=== PATIENT | female | born 1980 | race African-American/Black ===

== ENCOUNTER 2022-07-10 14:39 | Outpatient (CLI) | payer MEDICAID, SELFPAY ==
[2022-07-10 19:39] LABS: Chloride* 106 mmol/L (96-114)
[2022-07-10 19:40] LABS: Potassium* 3.9 mmol/L (3.6-5.1); Sodium* 137 mmol/L (135-149)
[2022-07-10 19:42] LABS: Cholesterol* 141 mg/dL (90-199)
[2022-07-10 19:43] LABS: Blood Urea Nitrogen* 9 mg/dL (5-24); Carbon Dioxide* 22 mmol/L (20-32); Creatinine* 0.6 mg/dL (0.5-1.5); Estimated Glomerular Filt Rate 116 ml/min; Glucose* 86 mg/dL (60-115); Triglycerides* 87 mg/dL (40-149)
[2022-07-10 19:44] LABS: Calcium* 9.1 mg/dL (8.4-10.6); HDL Cholesterol* 48 mg/dL (>=50); LDL Cholesterol Calculated 76 mg/dL (<100)
[2022-07-10 20:19] LABS: Ferritin* 4.3 ng/mL (6.24-137.0)
== END 2022-07-10 14:40 | disposition home or self-care (01) ==
PROVIDERS: PCP Emergency Medicine; Visit Provider Emergency Medicine
DX: Z01.419 Encounter for gynecological examination (general) (routine) without abnormal findings (principal); E03.8 Other specified hypothyroidism; D50.9 Iron deficiency anemia, unspecified; F32.A Depression, unspecified; Z13.6 Encounter for screening for cardiovascular disorders
CPT/HCPCS: 80048; 80061; 82728; 84443

== ENCOUNTER 2022-08-21 18:02 | Outpatient (CLI) | payer MEDICAID, SELFPAY | END 2022-08-21 18:03 | disposition home or self-care (01) | LOC: LKVREF 18:03 | PROVIDERS: PCP Emergency Medicine; Visit Provider Emergency Medicine | DX: D50.9 Iron deficiency anemia, unspecified (principal) | CPT/HCPCS: 82728 ==

== ENCOUNTER 2022-12-12 14:51 | Outpatient (CLI) | payer MEDICAID, SELFPAY | END 2022-12-12 14:52 | disposition home or self-care (01) | LOC: LKVREF 14:52 | PROVIDERS: PCP Emergency Medicine; Visit Provider Emergency Medicine | DX: N92.0 Excessive and frequent menstruation with regular cycle (principal); D50.9 Iron deficiency anemia, unspecified; R42 Dizziness and giddiness; F32.A Depression, unspecified | CPT/HCPCS: 82728; 85730 ==

== ENCOUNTER 2023-07-09 09:33 | Outpatient (CLI) | payer MEDICAID, SELFPAY | END 2023-07-09 09:34 | disposition home or self-care (01) | LOC: NFLDREF 07-10 06:40 | PROVIDERS: PCP Emergency Medicine; Referring Provider Emergency Medicine; Visit Provider Emergency Medicine | DX: D64.9 Anemia, unspecified (principal); E03.8 Other specified hypothyroidism; R79.0 Abnormal level of blood mineral; Z13.6 Encounter for screening for cardiovascular disorders | CPT/HCPCS: 80048; 80061; 82728; 84443 ==

== ENCOUNTER 2023-07-29 20:22 | Outpatient (CLI) | payer MEDICAID, SELFPAY ==
--- NOTE | 2023-08-06 08:50 | W.PM.SLEEP ---
Sleep Study Details Details Interpreting Provider: Walt Date of Sleep Study: 07/29/23 Sleep Study Details: STUDY TYPE:? Hospital polysomnogram ? BMI:? 28.3 ORDERING PROVIDER:? Walt INDICATION:? Concerns about sleep apnea ? SLEEP SUMMARY:? 375 minutes of sleep time RESPIRATORY SUMMARY:? Mean oxygen awake 98 asleep 98 minimum 91 AHI 3.8, RDI 6.4 Supine AHI 8.1, supine REM AHI 53.8 nonsupine RDI 0.9 PERIODIC LIMB MOVEMENTS OF SLEEP:? Index 3.4, index with arousal 0.3 CARDIAC:? Awake 84 sleep 78 no arrhythmias IMPRESSION:? The overall AHI is within normal limits however the RDI is elevated at 6.4. The supine REM AHI is dramatically elevated at 53.8 RECOMMENDATION: If the patient is symptomatic treatment could consist of positional therapy, CPAP AutoSet 4-17 or a dental appliance.
== END 2023-07-29 20:23 | disposition home or self-care (01) ==
LOC: SLEEP 20:23
PROVIDERS: PCP Emergency Medicine; Visit Provider Otolaryngology
DX: G47.19 Other hypersomnia (principal)
CPT/HCPCS: 95810

== ENCOUNTER 2023-08-15 15:35 | Outpatient (CLI) | payer OTHER, MEDICAID, SELFPAY | END 2023-08-15 15:36 | disposition home or self-care (01) | PROVIDERS: PCP Emergency Medicine; Visit Provider Emergency Medicine | DX: Z00.00 Encounter for general adult medical examination without abnormal findings (principal); E04.1 Nontoxic single thyroid nodule; E03.8 Other specified hypothyroidism; R63.5 Abnormal weight gain; D50.9 Iron deficiency anemia, unspecified; E55.9 Vitamin D deficiency, unspecified; R79.0 Abnormal level of blood mineral; Z13.6 Encounter for screening for cardiovascular disorders | CPT/HCPCS: 84439; 84443; 84480 ==

== ENCOUNTER 2023-08-21 15:30 | Outpatient (CLI) | payer OTHER, MEDICAID, SELFPAY ==
--- NOTE | 2023-08-21 16:00 | CRLHL7_ITS ---
For Patients: As a result of the Cures Act, medical imaging exams and procedure reports are released immediately into your electronic medical record. You may view this report before your referring provider. If you have questions, please contact your health care provider. INDICATION: Thyroid nodules. Benign thyroid biopsy about 20 years ago per patient. TECHNIQUE: Conventional two-dimensional leon-scale ultrasound of the thyroid gland. COMPARISON: None. FINDINGS: In the medial aspect of the mid right thyroid lobe is a 1.5 x 1.3 x 1.0 cm TR4 nodule. In the medial aspect of the inferior right lobe is a 1.6 x 1.0 x 0.8 cm TR3 nodule. In the superior right lobe is an 8 mm TR4 nodule and in the inferior right lobe is a 5 mm TR2 nodule. No left lobe nodule is evident otherwise. The thyroid parenchyma is otherwise unremarkable. The right lobe measures 4.5 x 1.9 x 2.0 cm and the left lobe 4.4 x 1.4 x 1.4 cm. The isthmus measures 4 mm in thickness. IMPRESSION: 1.6 cm TR4 medial mid right thyroid lobe nodule. Other nodules insignificant. ACR TI-RADS: TR1: Benign No FNA TR2: Not Suspicious No FNA TR3: Mildly Suspicious FNA if greater than or equal to 2.5 cm Follow if greater than or equal to 1.5 cm and less than 2.5 cm TR4: Moderately Suspicious FNA if greater than or equal to 1.5 cm Follow if greater than or equal to 1 cm and less than 1.5 cm TR5: Highly Suspicious FNA if greater than or equal to 1 cm Follow if greater than or equal to 0.5 cm and less than 1.0 cm Dictated by Marcellus Ortega MD @ 08/23/2023 7:17:37 AM (Electronically Signed)
== END 2023-08-21 15:31 | disposition home or self-care (01) ==
LOC: US 15:31
PROVIDERS: PCP Emergency Medicine; Visit Provider Emergency Medicine
DX: E04.1 Nontoxic single thyroid nodule (principal)
CPT/HCPCS: 76536

== ENCOUNTER 2023-09-20 10:09 | Outpatient (CLI) | payer OTHER, MEDICAID, SELFPAY ==
--- NOTE | 2023-09-20 10:15 | CRLHL7_ITS ---
For Patients: As a result of the Century Cures Act, medical imaging exams and procedure reports are released immediately into your electronic medical record. You may view this report before your referring provider. If you have questions, please contact your health care provider. INDICATION : Right thyroid nodule. TECHNIQUE : Ultrasound-guided fine needle aspiration of thyroid nodule. Comparison : 08/21/2023 FINDINGS : PROCEDURE: After the informed consent and time-out, multiple fine needle aspirations were obtained from the thyroid nodule. Fine needle performed. 25 gauge needles were used. Lidocaine was used for local anesthesia. The preliminary cytology was adequate for interpretation. Real-time imaging was used for guidance and needle placement. Post imaging ultrasound demonstrates no immediate complication. IMPRESSION : Successful fine needle aspiration of right thyroid nodule. Dictated by Miguel Medeiros MD @ 09/20/2023 12:11:25 PM (Electronically Signed)
== END 2023-09-20 10:10 | disposition home or self-care (01) ==
LOC: US 10:11
PROVIDERS: PCP Emergency Medicine; Visit Provider Emergency Medicine
DX: E04.1 Nontoxic single thyroid nodule (principal)
CPT/HCPCS: 10005; 88173

== ENCOUNTER 2023-11-05 09:45 | Outpatient (RCR) | payer OTHER, MEDICAID, SELFPAY ==
--- NOTE | 2023-10-01 09:37 | PT.OPE ---
[facility] PT [facility] Out[facility] Eval Start: 09/20/23 15:38 Freq: Status: Active Protocol: Document 09/20/23 15:38 EMEKA (Rec: 09/20/23 15:40 EMEKA [id number]) E-signed By Joel Patel DPT, MS Physical Therapy Outpatient Evaluation Insurance Information Recert Due Date 11/19/23 Insurance Name [employer],Medicaid Medical Diagnosis Chondromalacia patellae, unspecified knee Treating Diagnosis Decreased R knee ROM and R LE flexibility, R LE weakness, imbalance, gait dysfunction. Subjective Subjective Patient presents to PT with c/ o chronic L knee pain over the past several years of insidious origin. 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 Currently on work restrictions for no lifting or transferring due to chronic B wrist pain for the next 3 weeks. Pt does not exercise and believes weakness may be playing a role. Notes long hx of flat feet and would like recommendations for how to help with this. Recent radiographs found no joint effusion, joint space narrowing, chondrocalcinosis or other abnormality. Aggravating activities: prolonged squatting and sitting in a frog legged position, extended standing and walking, stair climbing ( up>down). Relieving: rest. Pt hopes to decrease pain with work and daily activities. 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 All meniscus and ligament testing negative. Significant L quad and glute muscle weakness combined with B pes planus leading to L foot pronation during gait and genu valgum during stance phase of gait. No radiographic evidence of knee OA with L Trendelenburg during gait and the requirements of her job appearing to lead to chronic L knee pain. Provided pt with recommendations for OTC foot orthotics to help improve quality of gait. Pt fatigued quickly with LE strengthening exercises with decreased knee pain following. She will benefit from continued skilled PT intervention to address these limitation. Primary Functional Limitations Squatting, prolonged sitting in a frog legged position, extended standing and walking, stair climbing (up>down). Plan of Care Rehabilitation Potential Excellent Physical Therapy Goals Short-term goals to be completed in 4 weeks: 1. Pt will be able to stand and walk for >5 minutes with no elevation in L knee pain to perform work duties. 2. Pt will be able to squat >4 times with no elevation in L knee pain to perform work and household activities. Long-term goals to be completed in 10 weeks: 1. 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 Pt will display improved B quad, hip flex, ABD and ext of >4/5 to improve quality of gait and running 3. Pt will display improved stair climbing mechanics ascending<>descending >12 stairs with a reciprocal pattern with no elevation in pain levels to safely reach her bedroom. 4. Pt will be able to perform all work and daily activities without elevation in L knee pain. Coordination/Communication With Referral Source Treatment Plan/Direct Interventions Neuromuscular Re-ed, Therapeutic Exercises Frequency/Duration 1x per week for 6-10 visits Patient Will Be Discharged From Therapy Completion of LTG(s),Skills Plateau,Independent w/HEP, Independently Progressing Evaluation Billing Untimed Code Treatment Minutes 25 Complexity Moderate Certification Information Initial Certification Date 09/20/23 Ending Certification Date 11/19/23 Provider Signature Shows Agreement With POC & Medical Necessity Physician Signature & Date Requested Please Sign/Date Here Physician Comment/Change : Physician NPI Number #
== END 2024-03-04 23:59 | disposition home or self-care (01) ==
PROVIDERS: PCP Emergency Medicine; Visit Provider Emergency Medicine
DX: M22.40 Chondromalacia patellae, unspecified knee (principal); R26.9 Unspecified abnormalities of gait and mobility; R26.81 Unsteadiness on feet; Z74.09 Other reduced mobility; R29.898 Other symptoms and signs involving the musculoskeletal system; Z51.89 Encounter for other specified aftercare
CPT/HCPCS: 97110; 97162

== ENCOUNTER 2024-01-10 14:46 | Outpatient (CLI) | payer OTHER, MEDICAID, SELFPAY ==
--- NOTE | 2024-01-10 14:40 | CRLHL7_ITS ---
For Patients: As a result of the Century Cures Act, medical imaging exams and procedure reports are released immediately into your electronic medical record. You may view this report before your referring provider. If you have questions, please contact your health care provider. BILATERAL SCREENING MAMMOGRAM WITH COMPUTER-AIDED DETECTION AND TOMOSYNTHESIS TECHNIQUE: CC and MLO views were obtained. These mammographic images have been obtained using full-field digital technique. These mammographic images were interpreted with the benefit of computer-aided detection. Breast Tomosynthesis was used in this interpretation. COMPARISON FILM: 03/16/21. FINDINGS: There are scattered areas of fibroglandular density. IMPRESSION: There is no radiographic evidence for malignancy. ASSESSMENT: BI-RADS Category 1: Negative RECOMMENDATION: Routine screening mammogram in 1 year. A lay language report of this examination will be provided to the patient. Miguel Medeiros M.D. Diagnostic Radiologist [email or web address] SP/Dictated by: Miguel Medeiros MD @ 01/13/2024 8:40:00 AM (Electronically Signed)
== END 2024-01-10 14:47 | disposition home or self-care (01) ==
LOC: MAMMO 14:47
PROVIDERS: PCP Emergency Medicine; Visit Provider Emergency Medicine
DX: Z12.31 Encounter for screening mammogram for malignant neoplasm of breast (principal)
CPT/HCPCS: 77063; 77067

== ENCOUNTER 2024-08-19 15:57 | Outpatient (CLI) | payer MEDICAID, SELFPAY | END 2024-08-19 15:58 | disposition home or self-care (01) | PROVIDERS: PCP Emergency Medicine; Visit Provider Emergency Medicine | DX: D50.9 Iron deficiency anemia, unspecified (principal); K59.00 Constipation, unspecified | CPT/HCPCS: 82728; 84443 ==